=== PATIENT | male | born 1985 | race Caucasian/White ===

== ENCOUNTER → 2017-08-06 | Outpatient (CLI) | payer OTHER ==
[~2017-08-06] MED LIST: FLUSAL5005; HYDACE5 PO; NAPR500 PO
[2017-08-09 09:30] LABS: Codeine Not Detected (NOTDET); Hydrocodone Not Detected (NOTDET); Hydromorphone Not Detected (NOTDET); Morphine Not Detected (NOTDET); Norhydrocodone Not Detected (NOTDET); Noroxycodone Not Detected (NOTDET)
== END ==
LOC: LAB SRC 13:38
PROVIDERS: Family Medicine
DX: F11.20 Opioid dependence, uncomplicated (principal); Z79.899 Other long term (current) drug therapy
CPT/HCPCS: G0480

== ENCOUNTER 2017-08-11 19:08 | Emergency (ER) | payer OTHER ==
[~2017-08-11] VITALS: Ht 200.7 cm; Wt 113.4 kg
== END 2017-08-11 22:14 | disposition home or self-care (01) ==
LOC: ER 19:08
DX: J34.89 Other specified disorders of nose and nasal sinuses (principal); J45.909 Unspecified asthma, uncomplicated; F17.200 Nicotine dependence, unspecified, uncomplicated
CPT/HCPCS: 70160; 99283